=== PATIENT | male | born 1995 | race Caucasian/White ===

== ENCOUNTER 2018-07-06 13:33 | Emergency (ER) | payer OTHER ==
[2018-07-06 13:43] VITALS: BP 131/72
[2018-07-06] MEDS ORDERED: LIDOCAINE-EPINEPH-TETRACAINE 3 ML SYRINGE TOP STA (14:30)
[2018-07-06] MEDS ORDERED: LIDOCAINE-EPINEPH-TETRACAINE 3 ML SYRINGE TOP ONE (14:30)
--- NOTE | 2018-07-06 14:32 | ED Physician Documentation ---
History of Present Illness - Stated complaint Stated Complaint: MALE - Chief complaint Chief Complaint: General - Additonal information Additional information: hx from pt healthy 22 y/o m painful hemorrhoid despite steroid cream Review of Systems GI: reports: Other (rectal pain) PD PAST MEDICAL HISTORY - Past Medical History Past Medical History: No - Past Surgical History Past Surgical History: No - Present Medications Home Medications: Ambulatory Orders Medication Instructions Recorded Confirmed Docusate Sodium 250Mg Capsule 250 mg PO DAILY #10 capsule 07/06/18 [Colace 250Mg Capsule] Lidocaine Ointment 5% [Xylocaine 1 applic TOP Q4H PRN #1 tube 07/06/18 Ointment 5%] - Allergies Allergies/Adverse Reactions: Allergies Allergy/AdvReac Type Severity Reaction Status Date / Time No Known Drug Allergies Allergy Verified 07/06/18 13:43 - Social History Does the pt smoke?: No Smoking Status: Never smoker Does the pt drink ETOH?: No Does the pt have substance abuse?: No - Immunizations Immunizations are current?: Yes PD ED PE NORMAL - Vitals Vital signs reviewed: Yes - Rectal Rectal: Other (nurse Marylin present - small thrombosed tender hemorrhoid about 10 o clock in [facility]) Results - Vitals Vitals: Vital Signs - 24 hr 07/06/18 13:41 Temperature 36.6 C Heart Rate 85 Respiratory 16 Rate Blood Pressure 131/72 H O2 Saturation 100 Oxygen O2 Source Room air PD MEDICAL DECISION MAKING - ED course ED course: LET and needle aspiration of dark blood -> sig dec swelling and thrombosis Departure - Departure Disposition: 01 Home, Self Care Clinical Impression: Hemorrhoid thrombosis Condition: Good Instructions: ED Hemorrhoids Prescriptions: Docusate Sodium 250Mg Capsule [Colace 250Mg Capsule] 250 mg PO DAILY #10 capsule Lidocaine Ointment 5% [Xylocaine Ointment 5%] 1 applic TOP Q4H PRN #1 tube PRN Reason: Pain
== END 2018-07-06 16:14 | disposition home or self-care (01) ==
LOC: ED 13:33
DX: K64.5 Perianal venous thrombosis (principal)
CPT/HCPCS: 46083; 99283

== ENCOUNTER 2022-05-18 10:49 | Outpatient (CLI) | payer OTHER ==
[2022-05-18] MEDS ORDERED: ALBUTEROL 1 PUFF INH STA (16:35)
== END 2022-05-18 10:50 | disposition home or self-care (01) ==
LOC: RT 10:49
PROVIDERS: ATTEND Family Medicine
DX: R06.09 Other forms of dyspnea (principal)
CPT/HCPCS: 94060; 94729

== ENCOUNTER 2023-11-12 15:40 | Emergency (ER) | payer OTHER ==
[2023-11-12 16:30] VITALS: BP 139/66; O2SAT 100
[2023-11-12] MEDS: PROPARACAINE 0.5% OPHTH DROPS 15 ML LEFTEYE STA (16:45)
--- NOTE | 2023-11-12 16:57 | ED Physician Documentation ---
PD HPI OPHTHO - Stated complaint Stated Complaint: L EYE PX - Chief complaint Chief Complaint: Heent - History obtained from History obtained from: Patient - Additional information Additional information: Patient is a 28-year-old male presenting for evaluation of redness and swelling to the left upper eyelid that he has noticed yesterday. Patient reports having had a history of styes in the past that improved after warm compresses. He denies any abnormal drainage throughout the day but did state he woke up with a little bit of yellow crusting this morning. Denies changes to his vision. Denies irritation or itchiness. No fevers, headache.Does not wear contacts or glasses. Review of Systems Constitutional: denies: Fever Eyes: denies: Loss of vision, Photophobia, Irritation PD PAST MEDICAL HISTORY - Past Medical History Past Medical History: Yes - Past Surgical History Past Surgical History: No - Present Medications Home Medications: Ambulatory Orders Medication Instructions Recorded Confirmed No Known Home Medications 11/12/23 11/12/23 - Allergies Allergies/Adverse Reactions: Allergies Allergy/AdvReac Type Severity Reaction Status Date / Time No Known Drug Allergies Allergy Verified 11/12/23 16:15 - Social History Does the pt smoke?: No Smoking Status: Never smoker Does the pt drink ETOH?: No Does the pt have substance abuse?: No - Immunizations Immunizations are current?: Yes PD ED PE NORMAL - General General: Alert and oriented X 3, No acute distress, Well developed/nourished - HEENT HEENT: Atraumatic, PERRL, EOMI, Moist mucous membranes, Pharynx benign - Respiratory Respiratory: No respiratory distress - Neuro Neuro: Normal speech PD ED PE EXPANDED - Eyes Eyes: Visual acuity - see nn, PERRL, EOMI, Eyelid swelling (L upper eyelid stye medially), Nl conjunctiva/sclera, Anterior chambers clear. No: Normal eyelids, Eyelid embedded FB, Injected conj/sclera, Exudate, Corneal abrasion, Corneal ulcer, Fluorescein uptake, Hyphema Results - Vitals Vitals: Vital Signs - 24 hr 11/12/23 16:08 Temperature 36.6 C Heart Rate 80 Respiratory 16 Rate Blood Pressure 139/66 H O2 Saturation 100 Oxygen O2 Source Room air PD Medical Decision Making - ED course ED course: Patient presenting for evaluation of redness and swelling to the left upper eyelid. Exam is consistent with a stye. Discussed continued supportive care with trial of warm compresses. No signs of foreign body or corneal abrasion. Visual acuity is intact. No signs of orbital or preseptal cellulitis.Patient counseled on concerning symptoms to return for. Departure - Departure Disposition: 01 Home, Self Care Clinical Impression: Stye Condition: Stable Instructions: [facility] Comments: Your exam shows that you have a stye to the left upper eyelid. At this time I do not see an indication for antibiotics but we do recommend warm compresses several times a day to help this resolve. Please also review the attached instruction sheet. If it is getting worse or not getting better then I would recommend close follow-up with an hand mixer. Return to the ER with any worsening such as abnormal drainage, changes to your vision or any other concerns. Forms: PCP List Discharge Date/Time: 11/12/23 17:17
== END 2023-11-12 17:17 | disposition home or self-care (01) ==
LOC: ED 15:40
DX: H00.014 Hordeolum externum left upper eyelid (principal)
CPT/HCPCS: 99282; 99283; J3490

== ENCOUNTER 2024-05-13 19:20 | Emergency (ER) | payer OTHER ==
--- NOTE | 2024-05-13 19:35 | ED Physician Documentation ---
History of Present Illness - Stated complaint Stated Complaint: NIPPLE PX - History obtained from History obtained from: Patient - Additonal information Additional information: Patient is a 28-year-old male presenting to the emergency department with left nipple pain symptoms started around 330 this afternoon and have progressively been persistent. Patient suspects he feels a small mass to the 12 o'clock position of his left nipple. He denies this ever happening before no significant past medical history. He denies any fevers or chills associate with his symptoms no discharge from the nipple. He has not taken anything for pain. Pain came on while he was just sitting at home. He describes it as a shooting pain stabbing to his left nipple. PD PAST MEDICAL HISTORY - Past Surgical History Past Surgical History: No - Present Medications Home Medications: Ambulatory Orders Medication Instructions Recorded Confirmed Bacitracin Zinc Oint 1 applic TOP BID #1 each 05/13/24 - Allergies Allergies/Adverse Reactions: Allergies Allergy/AdvReac Type Severity Reaction Status Date / Time No Known Drug Allergies Allergy Verified 05/13/24 19:49 - Social History Does the pt smoke?: No Smoking Status: Never smoker Does the pt drink ETOH?: No Does the pt have substance abuse?: No - Immunizations Immunizations are current?: Yes PD ED PE NORMAL - Vitals Vital signs reviewed: Yes - General General: Alert and oriented X 3 - HEENT HEENT: Atraumatic - Neck Neck: Supple, no meningeal sign - Cardiac Cardiac: RRR, No murmur, No gallop, No rub - Respiratory Respiratory: No respiratory distress, Clear bilaterally - Derm Derm: Normal color, No rash, Other (No significant erythema fluctuance or discharge from left nipple on examination. Reproducible tenderness to 12 o'clock position of left nipple small about 5 mm in size mass to anterior portion of left nipple with reproducible tenderness but no erythema fluctuance or discharge to the region.No axill) Results - Vitals Vitals: Vital Signs - 24 hr 05/13/24 19:38 Temperature 36.3 C L Heart Rate 88 Respiratory 16 Rate Blood Pressure 148/77 H O2 Saturation 96 Oxygen O2 Source Room air PD Medical Decision Making - ED course Complexity details: reviewed old records ED course: Patient is a 28-year-old male presenting to the emergency department with left nipple pain symptoms started around 3:30 PM this afternoon. Patient describes as a shooting pain he feels a mass in the 12 o'clock position this is new for him he denies feeling that prior to this he denies any fevers chills no discharge no swelling to his left nipple or tissue. Vital stable on arrival. Physical exam shows 5 mm mass to 12 o'clock position mobile no discharge no warmth significant tenderness to light touch. No axillary lymphadenopathy appreciated. Physical exam underwhelming given no erythema no warmth no discharge symptoms came on suddenly earlier today. Discussed with patient we will apply topical antibiotic and have him follow-up with his PCP he was instructed to return if redness fevers or develops discharge or increase in size to mass or tenderness. Patient instructed to avoid touching it unless applying topical ointment to prevent irritating the sensitive area. Patient understands and is agreeable with this plan. Patient instructed he may require further imaging if pain increases in size or color or change in appearance. Patient understands and is agreeable with this plan. Departure - Departure Disposition: 01 Home, Self Care Clinical Impression: Nipple pain, Sebaceous cyst Condition: Good Follow-Up: Italo Rivera MD [Physician No Access] - Prescriptions: Bacitracin Zinc Oint 1 applic TOP BID #1 each Comments: You were seen here in the emergency department is a 28-year-old male presenting with left nipple pain symptoms most likely secondary to small abscess versus small sebaceous cyst. Will try topical antibiotics given symptoms came on suddenly you are afebrile you have no other systemic symptoms. Please apply as instructed watch for any redness swelling increasing size increasing pain any fevers or worsening irritation. Follow-up with your PCP in the outpatient setting to ensure resolution of symptoms.
[2024-05-13 19:41] VITALS: BP 148/77; O2SAT 96
== END 2024-05-13 21:05 | disposition home or self-care (01) ==
LOC: ED 19:20
DX: L72.3 Sebaceous cyst (principal)
CPT/HCPCS: 99282; 99283